=== PATIENT | male | born 1975 | race Two or more races ===

== ENCOUNTER 2018-06-13 16:06 | Emergency (ER) | payer MEDICAID ==
[~2018-06-13] VITALS: Ht 165.1 cm; Wt 94.3 kg
[2018-06-13 19:20] LABS: Basophils # (auto) 0.1 uL; Hematocrit 49.6 % (41.0-53.0); Nucleated Red Blood Cells % 0.2 %
[2018-06-13 19:22] LABS: Basophils % (auto) 0.7 % (0.0-2.0); Eosinophils # (auto) 0.4 uL; Eosinophils % (auto) 4.3 % (0.0-7.0); Hemoglobin 17.5 g/dL (13.5-17.5); Lymphocytes # (auto) 2.4 uL; Lymphocytes % (auto) 28.9 % (10.0-50.0); Mean Corpuscular Hgb Conc. 35.3 g/dL (32.0-36.0); Mean Corpuscular Volume 96.2 fL (80.0-100.0); Monocytes % (auto) 11.7 % (0.0-12.0); Neutrophils # (auto) 4.5 uL; Neutrophils % (auto) 54.4 % (37.0-80.0); Platelet Count (auto) 264 10^3/uL (140-450); Red Blood Cells 5.15 10^6/uL (4.5-5.90); White Blood Cell 8.3 10^3/uL (4.4-10.8)
[2018-06-13 19:24] LABS: Alanine Aminotransferase 98 U/L (16-61); Albumin 3.9 g/dL (3.4-5.0); Alkaline Phosphatase 129 U/L (45-117); Anion Gap 5 (5-15); Aspartate Aminotransferase 29 U/L (15-37); BUN/Creatinine Ratio 13.9; Bilirubin, Total 0.5 mg/dL (0.2-1.0); Blood Urea Nitrogen 15 mg/dL (7-18); Calcium 8.9 mg/dL (8.5-10.1); Carbon Dioxide 27 mmol/L (21-32); Chloride 103 mmol/L (98-107); GFR African American 97 mL/min; GFR Non-African American 80 mL/min; Glucose 211 mg/dL (74-106); Potassium 4.1 mmol/L (3.5-5.1); Sodium 135 mmol/L (136-145)
[2018-06-13 20:45] VITALS: BP 152/79
== END 2018-06-13 22:47 | disposition home or self-care (01) ==
LOC: ER 16:10
DX: I10 Essential (primary) hypertension (principal); E11.9 Type 2 diabetes mellitus without complications; Z88.8 Allergy status to other drugs, medicaments and biological substances
CPT/HCPCS: 36415; 80053; 82962; 84484; 85025; 93005

== ENCOUNTER 2019-11-19 18:54 | Emergency (ER) | payer MEDICAID ==
[~2019-11-19] VITALS: Ht 165.1 cm; Wt 81.6 kg
[2019-11-19] MEDS ORDERED: ONDANSETRON HCL 4 MG/2 ML VIAL IV ONE (20:30)
[2019-11-19] MEDS ORDERED: HYDROmorphone HCL 2 MG/ML VL IV ONE (20:30)
[2019-11-20] MEDS ORDERED: CYCLOBENZAPRINE HCL 10 MG TAB PO ONE (01:00)
[2019-11-20] MEDS ORDERED: cloNIDine HCL 0.1 MG TAB PO ONE (01:00)
[2019-11-20] MEDS ORDERED: TERBUTALINE SULFATE 1 MG/ML 1ML VIAL SC ONE ×2 (03:52→04:00)
[2019-11-20 04:00] VITALS: BP 143/84
== END 2019-11-20 05:57 | disposition left against medical advice (07) ==
LOC: ER 18:56
DX: N48.30 Priapism, unspecified (principal); I10 Essential (primary) hypertension; E11.9 Type 2 diabetes mellitus without complications
CPT/HCPCS: 96372; 96374; 96375; 99284; J1170; J2405; J3105